=== PATIENT | female | born 1995 | race Caucasian/White ===

== ENCOUNTER 2016-10-19 11:49 | Emergency (ER) | payer OTHER ==
[~2016-10-19] VITALS: Ht 154.9 cm; Wt 52.2 kg
--- NOTE | 2016-10-19 12:33 | ED HEADACHE COMPLAINT ---
History of Present Illness General Chief Complaint: Headache Stated Complaint: HEADACHE Vital Signs & Intake/Output Vital Signs & Intake/Output Vital Signs Date Time Temp Pulse Resp B/P Pulse O2 O2 Flow FiO2 Ox Delivery Rate 10/19 1223 97.7 90 18 118/78 100 Room Air Allergies Coded Allergies: No Known Drug Allergies (10/19/16) Triage Note: C/O MIGRAINE HEADACHE SINCE THIS AM. VOMITED YESTERDAY. STATES SHE TOOK MOTIRN THIS AM. WAS RECENTLY TXD FOR UTI WITH UNKNOWN ABX. : No Patient currently breastfeeds: No Past History Travel History Traveled to [place] past 21 day No Psychosocial History What is your primary language Lithuanian Tobacco Use: Never used ETOH Use: denies use Departure Departure Condition: Stable Departure Forms: Customer Survey General Discharge Information
--- NOTE | 2016-10-19 13:38 | ED HEADACHE COMPLAINT ---
History of Present Illness General Chief Complaint: Headache Stated Complaint: HEADACHE Source: patient Exam Limitations: no limitations Vital Signs & Intake/Output Vital Signs & Intake/Output Vital Signs Date Time Temp Pulse Resp B/P Pulse O2 O2 Flow FiO2 Ox Delivery Rate 10/19 1223 97.7 90 18 118/78 100 Room Air Allergies Coded Allergies: No Known Drug Allergies (10/19/16) Triage Note: C/O MIGRAINE HEADACHE SINCE THIS AM. VOMITED YESTERDAY. STATES SHE TOOK MOTIRN THIS AM. WAS RECENTLY TXD FOR UTI WITH UNKNOWN ABX. Triage Nurses Notes Reviewed? yes : No Patient currently breastfeeds: No HPI: This patient is a 21-year-old female who presented to the emergency department today for evaluation of migraine headache. The patient reported that she gets severe migraines every time she begins her menstrual cycle. She has never been seen by a neurologist. Patient reported that she got a migraine pain is exactly months morning. She reported that it was, "so severe that I keeled over." The patient reported that the pain got up to 10 is 10. She reported that she was sweating. She reported that the pain is currently a 2 or 3 out of 10. The pain is located across her forehead and nonradiating. The patient denied any visual changes, head trauma, jaw pain, arm pain, numbness or tingling in her extremities, chest pain, difficulty breathing, back pain, or any other associated symptoms. (LUPE ABREU PA-C) Past History Travel History Traveled to [place] past 21 day No Medical History Any Pertinent Medical History? see below for history Neurological: migraine Surgical History Surgical History: non-contributory Psychosocial History What is your primary language Georgian Tobacco Use: Never used ETOH Use: denies use Family History Hx Contributory? No (LUPE ABREU PA-C) Review of Systems Review of Systems Constitutional: Reports: no symptoms. Eyes: Reports: no symptoms. Ears, Nose, Throat, Mouth: Reports: no symptoms. Respiratory: Reports: no symptoms. Cardiovascular: Reports: no symptoms. Gastrointestinal/Abdominal: Reports: no symptoms. Musculoskeletal: Reports: no symptoms. Skin: Reports: no symptoms. Neurological/Psychological: Reports: see HPI. All Other Systems: Reviewed and Negative (LUPE ABREU PA-C) Physical Exam Physical Exam Cranial Nerves: normal hearing, normal speech, PERRL Comments: Well-developed well-nourished person in no acute distress HEENT: Normal EENT exam, head normocephalic, moist mucous membranes PERRLA bilaterally Neck: Supple Back: Normal gait Respiratory: No respiratory distress. Extremity: Normal and equal pulses Neuro: Alert oriented x3, motor sensory normal, cranial nerves II through XII grossly intact. No aphasia. No facial droop. No unilateral. No focal neurologic deficits appreciated Skin: No appreciable rash on exposed skin, skin is warm and dry. Psych: Mood and affect is normal, memory and judgment is normal. Core Measures Severe Sepsis Present: No Septic Shock Present: No (LUPE ABREU PA-C) Progress Differential Diagnosis: carotid dissection, cav sinus thromb, cluster COOPER, encephalitis, IC mass/tumor, intracranial Hem., meningitis, migraine COOPER, sinusitis, subarach. Hem., tension COOPER, temporal arteritis, viral cephalgia Plan of Care: Current Medications Sig/Kayden Start time Last Medication Dose Stop Time Status Admin Ondansetron HCl 4 MG ONCE ONE 10/19 1315 CAN (Zofran) 10/19 1316 Comments: 10/19/2016 2:54:58 PM: As at the patient's bedside for reevaluation. She reported that her head pain has resolved. She is declining imaging. She will follow up with. Stable for discharge home. (LUPE ABREU PA-C) Departure Departure Disposition: HOME OR SELF CARE Condition: Stable Clinical Impression Primary Impression: Migraine Qualifiers: Migraine type: unspecified Status migrainosus presence: without status migrainosus Intractability: not intractable Qualified Code: G43.909 - Migraine, unspecified, not intractable, without status migrainosus Referrals: DENIS FRANK,MARY Gomez PATIENT HAS NO PRIMARY CARE DR (PCP/Family) Additional Instructions: Please rest and be sure to stay hydrated. Follow-up with the neurologist whose information has been provided to you. Return for any worsening symptoms or concerns. Departure Forms: Customer Survey General Discharge Information (LUPE ABREU PA-C) PA/FUR TINTER Co-Sign Statement Statement: ED Attending supervision documentation- [] I saw and evaluated the patient. I have also reviewed all the pertinent lab results and diagnostic results. I agree with the findings and the plan of care as documented in the PA's/FUR TINTER's documentation. [X] I have reviewed the ED Record and agree with the PA's/FUR TINTER's documentation. [] Additions or exceptions (if any) to the PAs/FUR TINTER's note and plan are summarized below: [] (ILSA FRANK,TRINI)
[2016-10-19 15:24] VITALS: BP 115/72
== END 2016-10-19 15:24 ==
LOC: ERH 11:49
DX: G43.909 Migraine, unspecified, not intractable, without status migrainosus (principal)
CPT/HCPCS: 96374; J1885